=== PATIENT | female | born 1970 | race Caucasian/White ===

== ENCOUNTER 2017-05-12 09:01 | Emergency (ER) | payer OTHER ==
[2017-05-12] MEDS: ONDANSETRON (ODT) 4 MG TAB ODT (09:44)
[2017-05-12] MEDS: ACETAMINOPHEN 500 MG TAB PO (09:44)
[2017-05-12 10:40] LABS: ADD UMIC YES; UR ASCORBIC ACID 40 mg/dL (NEGATIVE); UR BILIRUBIN (Dip) NEGATIVE (NEGATIVE); UR BLOOD (Dip) 3+ mg/dL (NEGATIVE); UR CLARITY SLIGHTLY CLOUDY (CLEAR); UR COLOR YELLOW (YELLOW); UR GLUCOSE (Dip) NEGATIVE (NEGATIVE); UR KETONES (Dip) NEGATIVE (NEGATIVE); UR LEUKOCYTE ESTERASE (Dip) TRACE Leu/ul (NEGATIVE); UR MUCUS FEW /HPF (NONE SEEN); UR NITRITE (Dip) NEGATIVE (NEGATIVE); UR RBC 4 /HPF (0-5); UR SPECIFIC GRAVITY (Dip) 1.024 (1.003-1.030); UR SQUAMOUS EPITHELIAL CELL FEW /HPF (FEW); UR TOTAL PROTEIN (Dip) NEGATIVE (NEGATIVE); UR UROBILINOGEN (Dip) NEGATIVE (NEGATIVE); UR WBC 2 /HPF (0-5)
== END 2017-05-12 11:46 | disposition home or self-care (01) ==
LOC: FTE 09:01
DX: J06.9 Acute upper respiratory infection, unspecified (principal); R11.10 Vomiting, unspecified
CPT/HCPCS: 71045; 81001; 87400; 99284-25